=== PATIENT | female | born 1945 ===

== ENCOUNTER 2023-06-10 09:03 | Day surgery (SDC) | payer OTHER ==
[~2023-06-10] VITALS: Ht 167.6 cm; Wt 83.9 kg
[~2023-06-10 09:03] MED LIST: ALPHA LIPOIC A600 MG PO; CANDESARTAN-HC1 EAC2 PO; FENOFIBRATE50 MG PO; OSTERA TABLET1 EACH PO; PROTONIX40 MG PO
== END 2023-06-10 17:10 | disposition home or self-care (01) ==
LOC: CIR.AMB 09:03
PROVIDERS: ATTEND Colon & Rectal Surgery
DX: R15.9 Full incontinence of feces (principal); Z88.1 Allergy status to other antibiotic agents
CPT/HCPCS: 64581; 95971; C1767

== ENCOUNTER 2023-06-24 06:20 | Day surgery (SDC) | payer OTHER | END 2023-06-24 12:00 | disposition home or self-care (01) | LOC: CIR.AMB 06:20 | PROVIDERS: ATTEND Colon & Rectal Surgery | DX: R15.9 Full incontinence of feces (principal); Z20.822 Contact with and (suspected) exposure to COVID-19; Z88.8 Allergy status to other drugs, medicaments and biological substances; I10 Essential (primary) hypertension | CPT/HCPCS: 64590; 95971; C1767 ==